=== PATIENT | female | born 1950 | race Caucasian/White ===

== ENCOUNTER → 2017-04-15 | Outpatient (CLI) | payer MEDICARE, OTHER ==
[2015-09-22 10:37] VITALS: BP 165/95
[~2017-04-15] MED LIST: BUPR300T4 PO; CITA40TA5 PO; OMEP40CA2 PO; RISP2TAB3 PO
--- NOTE | 2017-04-15 16:32 | KCIC ---
MR of the right knee Indication: Right knee pain anterolaterally. Recent fall. Technique: The standard multiplanar sequences are obtained. Findings: Medial meniscus:Intact. Lateral meniscus: Intact. Anterior cruciate ligament: Intact Posterior cruciate ligament: Intact Medial collateral ligament: Intact. Iliotibial band: Intact. Lateral collateral ligament: Intact Posterolateral corner: No internal derangement identified. Extensor mechanism: Intact. Fluid: Trace joint fluid. 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 -medial compartment: Probable mild chondromalacia without acute defect. -lateral compartment: No acute defect. Bones: Mildly depressed subchondral fracture of the posterior lateral tibial plateau. Depression measures 5 mm. Acute associated bone marrow edema. There is a serpiginous hypointense fracture line across the medial and posterior femur at the level of the upper condyle compatible with an incomplete fracture. There is some mild marrow heterogeneity within the proximal tibial metaphysis, probably a heterogeneous intraosseous cyst. Soft tissue: Mild soft tissue edema. This is greatest anterior. Impression: 1. Mildly depressed subchondral fracture of the posterior lateral tibial plateau, depressed 5 mm. This has a posttraumatic appearance. 2. Incomplete nondisplaced fracture of the distal aspect of the posteromedial femoral metaphysis. This could be posttraumatic or related to a repetitive stress injury. Electronically signed by: Jaxson Delgadillo MD (04/15/2017 4:30 PM) [id number]
== END | disposition home or self-care (01) ==
LOC: KCIC MRI 13:59
PROVIDERS: ATTEND General Practice
DX: S82.201A Unspecified fracture of shaft of right tibia, initial encounter for closed fracture (principal); X58.XXXA Exposure to other specified factors, initial encounter; Y93.89 Activity, other specified; Y92.89 Other specified places as the place of occurrence of the external cause; Y99.2 Volunteer activity
CPT/HCPCS: 73721